=== PATIENT | female | born 1960 | race Caucasian/White ===

== ENCOUNTER 2020-12-27 14:35 | Emergency (ER) | payer OTHER ==
[~2020-12-27] VITALS: Ht 157.5 cm; Wt 72.7 kg
[2020-12-27 16:28] VITALS: BP 192/104
== END 2020-12-27 17:10 | disposition home or self-care (01) ==
LOC: EMS 14:43
DX: R21 Rash and other nonspecific skin eruption (principal); I10 Essential (primary) hypertension
CPT/HCPCS: 99282; Z7502